=== PATIENT | female | born 1960 | race Caucasian/White ===

== ENCOUNTER → 2016-11-03 | Outpatient (CLI) | payer BC ==
[~2016-11-03] MED LIST: ASCA500 PO; CALC-48 PO; ENOX1INJ9 SC; OXYC-57 PO; POTA99TA PO; VITA400C3 PO; ZNF/4 PO
--- NOTE | 2016-11-04 07:43 | MAMMOGRAPHY REPORT ---
BILATERAL DIGITAL SCREENING MAMMOGRAM TOMOSYNTHESIS WITH CAD: 11/03/2016 CLINICAL HISTORY: Routine screening. TECHNIQUE: Breast tomosynthesis in addition to standard 2D mammography was performed. Current study was also evaluated with a Computer Aided Detection (CAD) system. COMPARISON: Comparison is made to exams dated: 10/29/2015 mammogram, 10/23/2014 mammogram, 10/21/2013 ma mmogram, 10/18/2012 mammogram, 10/18/2011 mammogram, and 10/12/2010 mammogram - [facility] er. BREAST COMPOSITION: The tissue of both breasts is heterogeneously dense, which may obscure small mas ses. FINDINGS: No suspicious masses, calcifications, or areas of architectural distortion are noted in ei ther breast. There has been no significant interval change compared to prior exams. IMPRESSION: ACR BI-RADS CATEGORY 1: NEGATIVE There is no mammographic evidence of malignancy. A 1 year screening mammogram is recommended. The pa tient will receive written notification of the results. Approximately 10% of breast cancers are not detected with mammography. A negative mammographic report should not delay biopsy if a clinically suggestive mass is present. Yahaira Higgins M.D. /:11/03/2016 16:10:59 Shake Splitter: Pia ELKINS(Basilio)(M), [facility] letter sent: Normal 1/2 BI-RADS Code: ACR BI-RADS Category 1: Negative
== END | disposition home or self-care (01) ==
LOC: C.MAMM 09:34
PROVIDERS: ATTEND Obstetrics & Gynecology
DX: Z12.31 Encounter for screening mammogram for malignant neoplasm of breast (principal)

== ENCOUNTER → 2017-02-20 | Outpatient (CLI) | payer OTHER ==
--- NOTE | 2017-02-20 12:49 | DIAGNOSTIC IMAGING REPORT ---
L SHOULDER MIN 2 VIEWS ROUTINE CLINICAL HISTORY: SHOULDER PAIN pain. COMPARISON: None. DISCUSSION: Degenerative change acromioclavicular joint. Mild inferior osteophytic reaction from the acromioclavicular region. Glenohumeral joint is unremarkable. No abnormal soft tissue calcifications. There is no evidence for soft tissue swelling. IMPRESSION: Degenerative change acromioclavicular joint. Otherwise negative study. The above report was generated using voice recognition software. It may contain grammatical, syntax or spelling errors. Electronically signed by: Zaid Sood M.D. 02/20/2017 12:47 PM Dictated Date/Time: 02/20/2017 12:47 PM
== END | disposition home or self-care (01) ==
LOC: C.RAD1850 12:27
PROVIDERS: ATTEND Family Medicine
DX: M19.012 Primary osteoarthritis, left shoulder (principal)

== ENCOUNTER → 2017-04-17 | Outpatient (CLI) | payer OTHER | END | disposition home or self-care (01) | LOC: C.RDSM 09:52 | PROVIDERS: ATTEND Physical Medicine & Rehabilitation Sports Medicine | DX: M24.851 Other specific joint derangements of right hip, not elsewhere classified (principal) ==

== ENCOUNTER 2024-07-01 05:22 | Observation (INO) ==
--- NOTE | 2024-06-03 11:26 | PAT Medication Instructions ---
Medication Instructions Date of Service June 03, 2024 Home Medications Medication Instructions Recorded flurbiprofen 100 mg tablet 50 mg (1/2 x 100 mg) PO BID #60 04/21/23 tabs fluticasone propionate 50 mcg/actuation nasal spray,suspension 1 spray intranasal QAM PRN congestion ascorbic acid (vitamin C) 250 mg tablet (Vitamin C) 250 mg PO QAM cetirizine 10 mg tablet 10 mg PO QAM PRN allergies cholecalciferol (vitamin D3) 25 mcg (1,000 unit) chewable tablet (Vitamin D3) 25 mcg PO QAM cyanocobalamin (vitamin B-12) 500 mcg tablet (Vitamin B-12) 250 mcg PO QAM magnesium carb,citrate,oxide (Magnesium Complex) 400 mg PO UD tizanidine 4 mg tablet 4 mg PO Q8H PRN leg cramps flurbiprofen 100 mg tablet 50 mg (1/2 x 100 mg) PO BID glucosamine DQv-sau-eavjryfqpcb 500 mg-167 mg-400 mg tablet 1 tab PO BID heyusenkhmyr-mkryccqf-bmfuvw tablet (Multivitamin 50 Plus tablet) 1 tab PO Q2D ASK your surgeon for instructions flurbiprofen 100 mg tablet 50 mg (1/2 x 100 mg) PO BID STOP taking 2 weeks before surgery glucosamine CLv-ntv-knnbbzujnaq 500 mg-167 mg-400 mg tablet 1 tab PO BID bbircpkxfmjo-aphiobcq-bmpyzq tablet (Multivitamin 50 Plus tablet) 1 tab PO Q2D DO NOT take the morning of surgery ascorbic acid (vitamin C) 250 mg tablet (Vitamin C) 250 mg PO QAM cetirizine 10 mg tablet 10 mg PO QAM PRN allergies cholecalciferol (vitamin D3) 25 mcg (1,000 unit) chewable tablet (Vitamin D3) 25 mcg PO QAM cyanocobalamin (vitamin B-12) 500 mcg tablet (Vitamin B-12) 250 mcg PO QAM magnesium carb,citrate,oxide (Magnesium Complex) 400 mg PO UD Take morning of surgery With a small sip of water, OTHERWISE NOTHING TO EAT OR DRINK AFTER MIDNIGHT: fluticasone propionate 50 mcg/actuation nasal spray,suspension 1 spray intranasal QAM PRN congestion (if needed) tizanidine 4 mg tablet 4 mg PO Q8H PRN leg cramps (if needed) Take evening before surgery tizanidine 4 mg tablet 4 mg PO Q8H PRN leg cramps (if needed) Other Notes If you have any questions please call us at [phone] or [phone] or [phone] or [phone]
--- NOTE | 2024-06-05 11:47 | Anesthesiology Consultation ---
Date of Service June 05, 2024 Assessment & Plan (1) Encounter for pre-operative examination: Chart Review Chart Review: Acceptable Risk for Surgery (pending review of updated ECHO ) and Patient seen in Pre Admission Testing - Please send optimization note to PCP (Dr. Emiliano Lutz) requesting updated ECHO prior to surgery (pt made aware) (Discussed with Dr. Samuel) - Patient is NOT an ideal OPJ candidate (currently 23 hour obs) Per PAT appt on 06/05/24, no recent illness/disease exposures, illness related symptoms, or recent illness/disease positive tests. Will leave to surgeon's discretion if preop Covid testing needed Left CTR/cubital tunnel 02/10/22= done under [facility] with LMA #4 ([facility]) Teaching & Discussion Pre-Anesthesia Teaching/Discussion Notes: Instructed NPO after midnight before surgery,except medications with 15 cc of water. Medication instructions provided according to the PAT guidelines. History Surgery Operation Date: 07/01/24 10:20 Proposed Procedures p Right Anterior Total Hip Arthroplasty - Abdulaziz Hagan DO Height/Weight Height: 5 ft 7.25 in Weight: 67.8 kg Allergies Allergy/AdvReac Type Severity Reaction Status Date / Time No Known Drug Allergies Allergy Verified 06/03/24 10:18 milk AdvReac Unknown Diarrhea Verified 06/03/24 10:18 artifical sweeteners AdvReac Intermediate Diarrhea Uncoded 06/03/24 10:18 EGGS AdvReac Intermediate diarrhea Uncoded 06/03/24 10:18 narcotics AdvReac Intermediate brain fog Uncoded 06/03/24 10:48 and restlessness & hyperactivity Medications Home Medications Medication Instructions Recorded Confirmed Last Taken fluticasone propionate 50 1 spray intranasal QAM PRN 09/02/20 06/03/24 Unknown mcg/actuation nasal congestion spray,suspension ascorbic acid (vitamin C) 250 mg 250 mg PO QAM 02/02/22 06/03/24 02/09/22 tablet (Vitamin C) cetirizine 10 mg tablet 10 mg PO QAM PRN allergies 02/02/22 06/03/24 Unknown cholecalciferol (vitamin D3) 25 25 mcg PO QAM 02/02/22 06/03/24 02/09/22 mcg (1,000 unit) chewable tablet (Vitamin D3) cyanocobalamin (vitamin B-12) 500 250 mcg PO QAM 02/02/22 06/03/24 02/09/22 mcg tablet (Vitamin B-12) magnesium carb,citrate,oxide 400 mg PO UD 02/02/22 06/03/24 02/09/22 (Magnesium Complex) tizanidine 4 mg tablet 4 mg PO Q8H PRN leg cramps 02/02/22 06/03/24 Unknown flurbiprofen 100 mg tablet 50 mg (1/2 x 100 mg) PO BID #60 04/21/23 06/03/24 Unknown tabs glucosamine QZj-xkp-gpmfapttvgm 1 tab PO BID 06/03/24 06/03/24 Unknown 500 mg-167 mg-400 mg tablet cdntpjurtqyr-xlrwatsv-mpddgs 1 tab PO Q2D 06/03/24 06/03/24 Unknown tablet (Multivitamin 50 Plus tablet) Past Medical History Medical History (Updated 06/06/24 @ 09:09 by Geetha Harper PA-C) Atrial septal aneurysm - Per 1998 ECHO - No evidence of secundum type ASD or PFO - Small intracardiac (sinus venosus- type ASD) or extracardiac (AV fistula) shunt is suggested s/p bubble study - Decided on no additional testing/follow up per patient due to absence of hemodynamically significant shunting Cardiac murmur - mild - 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 Hx of malignant gastrointestinal stromal tumor (GIST) (2005) SX-originally thought it was an ovarian cyst, transferred to general sx care, removed tumor; chemotherapy pill for 1 year Osteoarthritis Seasonal rhinitis Slow to wake up after anesthesia "slow to wake up" - no reintubation or ICU stay- just groggy Exercise / Class Metabolic Activity II 4-5 Yardwork/Stairs/Walk up hill (one flight of stairs - no chest pain or SOB ) Past Family History Family History Other No family history of adverse response to anesthesia Past Surgical History Surgical History H/O decompression of ulnar nerve Left ulnar nerve and left carpal tunnel History of cataract surgery bilateral History of esophagogastroduodenoscopy (EGD) History of hip surgery bone growth removed from lt trochanter rt hip-"shaved ball of hip to avoid total replacement" History of surgical procedure on eye proper using laser 2020 Hx of appendectomy with hysterectomy Hx of bladder repair surgery obturator sling surgery Hx of colonoscopy Hx of exploratory laparotomy (05/2005) removal GIST tumor and part of jejunum & right oopherectomy S/P eye surgery Goniotomy (bilateral -> 03/26/24 Left eye & 04/09/24 Right eye) S/P KYLE (total abdominal hysterectomy) with LSO Past Anesthesia History No Hx of Anesthesia Complications (with exception to slow to wake ) and No Family Hx of Anesthesia Complications (FH unknown ) History of PONV No Hx of PONV and Hx of Motion Sickness Social History Smoking Status: Never smoker Do You Dip or Chew Tobacco: No Hx Alcohol Use: No Hx Substance Use: No substance use type: does not use Review of Systems - Chronic post nasal drip from chronic rhinitis - Rare reflux - relieved with OTC antacids - Hx of snoring- no witnessed apnea - no hx of sleep study Patient denies chest pain, shortness of breath, dyspnea on exertion, cough, wheezing, palpitations. No hx of seizures, stroke, AL. No hx of blood clots or blood transfusions Physical Exam Vital Signs VITALS BP 108/67 P 57 TEMP 97.7 SP02 96% RESP 16 Constitutional no acute distress ENMT Mouth: no TMJ clicking Thyromental Distance: > or= 3.5 Finger Breadths (3.5) Mallampati Class: I Top front permanent bridges Neck neck extension not limited Respiratory normal respiratory effort; no respiratory distress Auscultation: lungs clear to auscultation bilaterally; no wheezes Cardiovascular Rate/Rhythm: regular rate and regular rhythm Heart Sounds: no murmur (no significant murmur noted ) Vessels: no carotid bruit Musculoskeletal Spine: no pain with cervical ROM Extremities: extremities normal to inspection Psychiatric Orientation: alert Lab Results Anesthesia Preop Results Results Anesthesia Widget: WBC 3.82 K/ul (4.8-10.8) L 06/05/24 Hgb 11.1 g/dl (12.0-16.0) L 06/05/24 Hct 31.5 % (37.0-47.0) L 06/05/24 Plt 269 K/uL (130-400) 06/05/24 Na 140 mmol/L (136-145) 06/05/24 K 3.9 mmol/L (3.5-5.1) 06/05/24 Cl 105 mmol/L (98-107) 06/05/24 CO2 29 mmol/L (21-32) 06/05/24 BUN 17 mg/dl (6-23) 06/05/24 Creat 0.64 mg/dl (0.6-1.2) 06/05/24 Glucose Level 97 mg/dl (70-99(Fasting)) 06/05/24 PT 10.6 Seconds (9.0-12.0) 06/05/24 PTT 28 Seconds (21-31) 06/05/24 INR 1.0 (0.9-1.1) 06/05/24 Blood Type O Positive 06/05/24 Antibody Screen NEGATIVE 06/05/24 Testing Laboratory Results Anemia- chronic- relatively stable Electrocardiogram Date: 06/05/24 Findings: + SB @ (48bpm) Incomplete RBBB When compared to EKG from September 02, 2020- no significant change was found per cardio Chest X-Ray Date: 06/05/24 Findings: + NAD FINDINGS: Heart size and pulmonary vasculature are normal. Stable hyperexpanded lungs. No consolidation or pleural effusion.
--- OUTSIDE RECORDS SUMMARY | 2024-07-01 05:31 | External Medical Summary | Continuity of Care Document ---
Author Name Unknown Organization [facility] [address] [facility] [address] [place] [address] [phone] Care Team Providers Care Setter Cold Rolling Machine Name Role Phone Emiliano Lutz Primary Care Physician [phone] Encounter [facility] [id number] Date(s): 06/06/24 - 06/06/24 [facility] [address] [address] [phone] Encounter Diagnosis Vaginal itching(Discharge Diagnosis) - 06/06/24 Discharge Disposition: Home or Self Care Attending Physician: MD Chery, Johnnie Piper Referring Physician: MD Lutz Michael P Encounter Type: Clinic Allergies, Adverse Reactions, Alerts Substance Criticality Severity Reaction Reaction Severity Status sucralose (Splenda) Diarrhea Active eggs Active milk products 1, 2 Diarrhea Cramps Active Allergy Not found in Search 3 digestive issues Active 1unless cooked 2Milk/ice cream 3artificial sweetners (unsure of specific sweetners) Assessment and Plan Extracted from: Title:Office Visit Note Author:DO Swartz Clair e S Date:06/06/24 1. Vaginal itching Undifferentiated new problem with uncertain prognosis Goal: Resolution Data: unique tests ordered: _vaginitis swab Plan: Suspect symptoms secondary to atrophy. Check vaginitis swab. If bothersome could consider treatment for atrophy-> f/u in office prn if would like to discuss treatment in the future. Immunizations Given and Recorded Vaccine Date Status Refusal Reason SARS-CoV-2 (COVID-19) mRNA BNT-162b2 vax 1 10/08/20 Recorded SARS-CoV-2 (COVID-19) mRNA BNT-162b2 vax 08/22/20 Recorded SARS-CoV-2 (COVID-19) mRNA BNT-162b2 vax 2 08/22/20 Recorded zoster vaccine, inactivated 04/26/19 Recorded zoster vaccine, inactivated 01/22/19 Recorded tetanus toxoids-diphtheria, Td (Adult) 02/09/18 Gi concetta tetanus toxoids-diphtheria, Td (Adult) 01/06/98 Re corded tetanus/diphtheria/pertuss, acel (Tdap) 06/20/07 R ecorded typhoid vaccine, live 06/24/04 Recorded 1Result Comment: 2020-10-09: Historical information-source unspecified 2Result Comment: [facility] Medications Flexeril 5 mg oral tablet Start: 07/31/23 11:26:00 AM EDT, 1 tab, PO, qhs, Disp# 20 tab, Refills: 0, prn muscle spasm, Pharmacy: [facility] Start Date: 07/31/23 Status: Ordered Quantity: 20.0 Unit: tab Repeat number: 1 Indications: Cramp and spasm; Flonase 50 mcg/inh nasal spray Start: 07/31/20 10:37:00 AM EDT, 1 spray, each nostril, bid, Disp# 16 g, Refills: 11, in each nostril,, PRN: allergy symptoms, Pharmacy: [facility] Start Date: 07/31/20 Stop Date: 07/26/21 Status: Ordered Quantity: 16.0 Unit: g Repeat number: 12 Indications: Other specified disorders of nose and nasal sinuses; flurbiprofen 100 mg oral tablet Start: 01/03/24 7:40:00 PM EST, See Instructions, Disp# 90 tab, Refills: 1, TAKE 1/2 TABLET TWICE DAILY NEEDED FOR PAIN with food or milk, Pharmacy: [facility] Start Date: 01/03/24 Status: Ordered Quantity: 90.0 Unit: tab Repeat number: 2 Glucosamine Chondroitin MSM Complex Start: 01/22/15 8:31:00 AM EST Start Date: 01/22/15 Status: Ordered Repeat number: 1 magnesium citrate 100 mg oral capsule Start: 06/05/23 9:57:00 AM EDT, 1 cap, PO, Daily Start Date: 06/05/23 Status: Ordered Repeat number: 1 multivitamin Start: 12/20/21 8:17:00 AM EST, 1 tab, PO, Daily Start Date: 12/20/21 Status: Ordered Repeat number: 1 tafluprost 0.0015% ophthalmic solution Start: 09/15/22 3:11:00 PM EDT Start Date: 09/15/22 Status: Ordered Repeat number: 1 Tamiflu 75 mg oral capsule Start: 04/12/24 10:10:00 AM EST, 1 cap, PO, bid, Disp# 10 cap, Pharmacy: [id number] Start Date: 04/12/24 Stop Date: 04/17/24 Status: Ordered Quantity: 10.0 Unit: cap Repeat number: 1 Vitamin B12 500 mcg oral tablet Start: 07/28/21 10:26:00 AM EDT, 1 tab, PO, Daily, Disp# 100 tab, Refills: 10, other Start Date: 07/28/21 Status: Ordered Quantity: 100.0 Unit: tab Repeat number: 11 Vitamin C Start: 12/20/21 8:17:00 AM EST Start Date: 12/20/21 Status: Ordered Repeat number: 1 Zanaflex 4 mg oral tablet Start: 11/03/21 3:43:00 PM EDT, 4 mg =, PO, tid, Disp# 90 tab, Refills: 2, PRN: muscle spasm, Pharmacy: [facility] Start Date: 11/03/21 Stop Date: 02/01/22 Status: Ordered Quantity: 90.0 Unit: tab Repeat number: 3 Mental Status 06/06/24 Barriers to Learning one year None evide nt Mandatory Health Literacy Documentation Yes Health Literacy Communication Barriers N ever Primary Language Latvian Problem List Condition Confirmation Course Effective Dates Status H ealth Status Informant Atrial septal aneurysm 1 Confirmed Active Carpal tunnel syndrome Confirmed Active Cows milk intolerance Confirmed Active Elevated MCV Confirmed 01/28/12 Active Foraminal stenosis of cervical region Confirmed Active Glaucoma Confirmed Active Hiatal hernia Confirmed Active History of malignant gastrointestinal stromal tumor (GIST) Confirmed Active Hx of migraines 2 Confirmed Active Hx of uterine prolapse 3 Confirmed 2004 Active Hyperlipidemia Confirmed 01/28/12 Active Incomplete right bundle branch block Confirmed Active Irritable bowel syndrome with alternating bowel habits Confirmed Active DJD of left AC (acromioclavicular) joint Confirmed Active Osteoarthritis of right hip Confirmed Active Osteochondroma 4 Confirmed Active Patent foramen ovale Confirmed Active Stress bladder incontinence, female 5 Confirmed 2004 Active 1with ASD vs. patent foramen ovale 2classic 3grade 1 4Left greater trochanter 5R/T cystourethracele & uterine prolapse Diagnosis Diagnosis Type Effective Dates Health Status Cl inical Service Informant Vaginal itching Discharge Diagnosis 06/06/24 Non-Specified Procedures Procedure Date Related Diagnosis Body Site Status Colonoscopy 1, 2, 3 02/10/23 Compl eted Mammogram 4 12/05/22 Completed Carpal tunnel syndrome 5 02/10/22 Completed Transposition of ulnar nerve at elbow 6 02/10/22 Completed Mammogram 7 11/29/21 Completed MRI of abdomen 8 12/31/20 Complete d Chest X-ray 9 09/02/20 Completed KUB X-ray 10 09/02/20 Completed Mammogram 11 11/13/18 Completed Diagnostic mammogram 12 11/07/17 C ompleted Left Shoulder X-ray 13 02/20/17 Co mpleted Mammogram 14, 15 11/03/16 Complete d Colonoscopy 16 08/05/15 Completed Upper GI endoscopy 17 08/05/15 Com pleted Pap smear for cervical cance r screening 18, 19 04/20/[address] of head 20 01/11/14 Completed Ultrasound scan of soft tiss ues of leg 21 01/11/14 Completed Arthroscopy of hip 22 01/03/14 Com pleted Mammogram 23 10/18/12 Completed DEXA - Dual energy X-ray earle ton absorptiometry 24 02/23/10 Completed Appendectomy 01/2007 Completed Hysterectomy 01/2007 Completed EGD : hiatus hernia 02/15/06 Compl eted KYLE and left USO 2006 Complete d jejunal )resection of GIST a nd right salpingoophorectomy 25 05/26/05 Completed obturator sling/anterior rep air of bladder 2001 Completed Excision of osteochondroma 1996 Completed Left greater torchanter oste ochondroma excision 1996 Completed Mammogram 28 60 Completed Removal of mole of skin by excision Completed Right salpingo-oophorectomy Completed Suspension of bladder Completed 1A) Ascending colon, biopsy No significant pathology B) Sigmoid colon, biopsy No significant pathology 2- The examined portion of the ileum was normal. - The sigmoid colon and ascending colon are normal. Biopsied. - Redundant colon. - The examination was otherwise normal on direct and retroflexion views 3Repeat colonoscopy in 10 years. 4Impression: There is no mammographic evidence of malignancy. A 1 year screening mammogram is recommended 5subcutaneous left ulnar nerve transposition (left) Left carpal tunnel release (left) 6Left 7Impression: There is no mammographic evidence of malignancy 81. There is no MRI evidence of recurrent or metastatic disease in the abdomen. 2. No hepatic lesion is seen. 3. Question gallbladder sludge. Otherwise normal MRCP. 4. Additional findings as above 9Impression: 1. Right basilar airspace opacities, likely infectious/inflammatory. Suspected trace right pleural effusions. Clinical and radiographic follow up are recommended. 10Impression: Unremarkable KUB 11ACR BI RADS CAT 1 NEGATIVE 12Negative. There is no mammographic evidence of malignancy. A 1 year screening is recommended. The patient will receive written notification of results. 13Degenerative change acromioclavicular joint. Otherwise negative study left shoulder. 14No malignancy. One year screening recommended. 15Impression: There is no mammographic evidence of malignancy.A 1 year screening mammogram is recommended. 16Colon normal. 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 Normal stomach, duodenum. 18follow up in 2 years 19Negative for intraepithelial lesion or malignancy. Atrophy with inflammation. 20No abnormality 21No DVT in right lower extremity 22right hip 23wnl 24-0.6 LS spine 25Dr. Salinas, and [place] 26left greater trochanter 27from a volleyball injury 281 year screening recommended. No mammographic evidence of malignancy 29Ant. Repair Results Most recent to oldest [Reference Range]: 1 Trichomonas DNA-Quest TNP 1 (06/06/24 11:32 AM) 1Result Comment: TEST NOT PERFORMED No suitable specimen received. Please review the test requirements at [email or web address] IQRA SWARTZ DO FASTING:UNKNOWN FASTING: UNKNOWN Specimen Received d/t: 06/07/2024 00:14:00 Lab test performed by: [email or web address] [address] [place] [address] Ernst Black MD Vital Signs Most recent to oldest [Reference Range]: 1 Patient Weight 68 kg (06/06/24 9:20 AM) Temperature [36.5-37.9 DegC] 36.6 DegC (06/06/24 9:20 AM) Heart Rate 65 bpm (06/06/24 9:20 AM) Respiratory Rate 16 br/min (06/06/24 9:20 AM) Blood Pressure 98/62mmHg (06/06/24 9:20 AM) Cuff Pulse Pressure 36 mmHg (06/06/24 9:20 AM) Social History Social History Type Response Smoking Status Never smoked cigaret debi Sex Female Sex Representation Female (finding) FCM Outpt Note * MD Campbell Amy L: MODIFY MD Campbell Amy L: MODIFY Event Display: FCM Outpt Note Authored Date: Chief Complaint C/O vaginal itching. Having R total hip sx 07/01. History of Present Illness 63 year old female with concern for vaginal itchy. - s/p hysterectomy - intermittent vaginal itching -> not bothersome, but ortho wants to rule out "infection" prior to hip replacement 07/01 - saw anesthesiology and ortho yesterday for pre-op testing-> states does not need PCP clearance - denies vaginal d/c - denies urinary symptoms, fever/chills Review of Systems As per above Physical Exam Vitals & Measurements T: 36.6 °C HR: 65 (Monitored) RR: 16 BP: 98/62 SpO2: 96% WT: 68.000 kg (Dosing) WT: 68 kg PHQ2 Data (Data Documented on:06/06/2024 09:15) Emotional health assessment NEGATIVE General: Well-developed, well-nourished patient, in no acute distress, pleasant and normal affect, intact memory. Eyes: No scleral injection or discharge. ENT: Moist mucous membranes. Lungs: No increased work of breathing. Cardiac: Well perfused. No extremity edema. Neurologic: Grossly intact cranial nerves External Genitalia: + atrophy of labia majora/minora, no suspicious lesions noted Urethral meatus: meatus was visualized, no incontinence or prolapse noted on exam Per [facility] protocol, a swimming pool cleaner was offered to be present during this examination. The role of swimming pool cleaner was filled by:_Dr. Campbell Assessment/Plan 1. Vaginal itching Undifferentiated new problem with uncertain prognosis Goal: Resolution Data: unique tests ordered: _vaginitis swab Plan: Suspect symptoms secondary to atrophy. Check vaginitis swab. If bothersome could consider treatment for atrophy-> f/u in office prn if would like to discuss treatment in the future. Attestation Attestation - I discussed and evaluated this patient with Dr. Swartz. I was present for the entirety of the pelvic exam. She has some subtle changes, c/w atrophic vaginitis. She was not looking for tx for this, but rather to rule out yeast, before upcoming ortho surgery. Swab was sent. The assessment and plan was developed with her and carried out at my direction. I have read and agree with her note. Problem List/Past Medical History Ongoing Atrial septal aneurysm Carpal tunnel syndrome Cows milk intolerance DJD of left AC (acromioclavicular) joint Elevated MCV Foraminal stenosis of cervical region Glaucoma Hiatal hernia History of malignant gastrointestinal stromal tumor (GIST) Hx of migraines Hx of uterine prolapse Hyperlipidemia Incomplete right bundle branch block Irritable bowel syndrome with alternating bowel habits Osteoarthritis of right hip Osteochondroma Patent foramen ovale Stress bladder incontinence, female Resolved Acute viral pharyngitis Adhesive capsulitis of shoulder Anemia Arm paresthesia, right Fracture of thumb, left, closed Leukopenia Sore throat Procedure/Surgical History •Colonoscopy| Service Date: 02/10/2023•Mammogram| Service Date: 12/05/2022•Transposition of ulnar nerve at elbow| Service Date: 02/10/2022•Carpal tunnel syndrome| Service Date: 02/10/2022•Mammogram| Service Date: 11/29/2021•MRI of abdomen| Service Date: 12/31/2020•KUB X-ray| Service Date: 09/02/2020•Chest X-ray| Service Date: 09/02/2020•Mammogram| Service Date: 11/13/2018•Diagnostic mammogram| Service Date: 11/07/2017•Left Shoulder X-ray| Service Date: 02/20/2017•Mammogram| Service Date: 11/03/2016•Colonoscopy| Service Date: 08/05/2015•Upper GI endoscopy| Service Date: 08/05/2015•Pap smear for cervical cancer screening| Service Date: 04/20/2015•CT of head| Service Date: 01/11/2014•Ultrasound scan of soft tissues of leg| Service Date: 01/11/2014•Arthroscopy of hip| Service Date: 01/03/2014•Mammogram| Service Date: 10/18/2012•DEXA - Dual energy X-ray photon absorptiometry| Service Date: 02/23/2010•Hysterectomy| Service Date: 01/2007•Appendectomy| Service Date: 01/2007•EGD : hiatus hernia| Service Date: 02/15/2006•KYLE and left USO| Service Date: 2006•jejunal )resection of GIST and right salpingoophorectomy| Service Date: 05/26/2005•obturator sling/anterior repair of bladder| Service Date: 2001•Left greater torchanter osteochondroma excision| Service Date: 1996•Excision of osteochondroma| Service Date: 1996•Mammogram| Service Date: 1960•Right salpingo- oophorectomy•Suspension of bladder•Removal of mole of skin by excision Medications ascorbic acid(Vitamin C) chondroitin/glucosamine/methylsulfonylmethane(Glucosamine Chondroitin MSM Complex) cyanocobalamin(Vitamin B12 500 mcg oral tablet), 500 mcg= 1 tab, PO, Daily, 10 refills cyclobenzaprine(Flexeril 5 mg oral tablet), 5 mg= 1 tab, PO, qhs flurbiprofen(flurbiprofen 100 mg oral tablet), See Instructions, 1 refills fluticasone nasal(Flonase 50 mcg/inh nasal spray), 1 spray, each nostril, bid, PRN, 11 refills magnesium citrate(magnesium citrate 100 mg oral capsule), 100 mg= 1 cap, PO, Daily multivitamin, 1 tab, PO, Daily oseltamivir(Tamiflu 75 mg oral capsule), 75 mg= 1 cap, PO, bid tafluprost ophthalmic(tafluprost 0.0015% ophthalmic solution) tiZANidine(Zanaflex 4 mg oral tablet), 4 mg, PO, tid, PRN, 2 refills Allergies Allergy Not found in Search digestive issues eggs milk products Diarrhea, Cramps sucralose (Splenda) Diarrhea Social History Smoking Status Never smoked cigarettes Alcohol - Denies Alcohol Use 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 High Blood Pressure: Father. Lung cancer..: Mother. Osteoporosis: Mother. Smoker.: Mother. Stroke: MGM and Unknown. Thyroid disease: Mother. Health Status Family Member(s) Family Member(s) Relationship: Mother, Age: 79 Years, Cause: starved herself Relationship: Father, Age: 90 Years, Cause: arrythmia Immunizations Vaccine Date Status SARS-CoV-2 (COVID-19) mRNA BNT-162b2 vax 10/08/2020 Recorded Comments : 2020-10-09: Historical information-source unspecified SARS-CoV-2 (COVID-19) mRNA BNT-162b2 vax 08/22/2020 Recorded SARS-CoV-2 (COVID-19) mRNA BNT-162b2 vax 08/22/2020 Recorded Comments : [facility] zoster vaccine, inactivated 04/26/2019 Recorded zoster vaccine, inactivated 01/22/2019 Recorded tetanus toxoids-diphtheria, Td (Adult) 02/09/2018 Given tetanus/diphtheria/pertuss, acel (Tdap) 06/20/2007 Recorded typhoid vaccine, live 06/24/2004 Recorded tetanus toxoids-diphtheria, Td (Adult) 01/06/1998 Recorded Recommendations Health Maintenance Pending (in the next year) OverDue Adult Influenza Vaccine due 08/14/23 and every 1 year Due Adult Social Determinants of Health Screening due 06/06/24 Unknown Frequency Pneumococcal Vaccine Older Adults due 06/06/24 One-time only Seasonal COVID 19 Vaccine due 06/06/24 Unknown Frequency Satisfied (in the past 1 year) Satisfied Body Mass Index on 03/11/24. Satisfied by JOURDAN Daily Kyla Breast Cancer Screening on 12/11/23. Satisfied by CYNTHIA Berumen Lynnae Electronic Signature on File Electronically Reviewed/Signed by: Iqra Swartz DO Author Signature Dt/Tm:06/06/2024 10:12 AM Resident Department of Family Medicine Electronically Reviewed/Signed by: MD Trice Bhaktaigner Signature Dt/Tm: 06/06/2024 08:07 PM Internal Audit Consultant Family and Community Medicine [facility] [address] [facility] [facility] [address], [address] [place] [address] CSN Patient Care team information Care Team Personnel Name: MD Nelda, Emiliano Piper Position: Physician - Family Med Member Role: Primary Care Provider Address: [address] [place] [address] [address] [place] [address] Telecom: [phone] Care Team Related Persons Name: RODRIGUE RAE Name: RODRIGUE RAE Insurance Providers Guarantor name: GABBI RAE Health Plan Information #: 1 Payer: [facility] Member Number: [id number] Policy Number: NA Group Number: [id number] Payer Identifier: [id number] Health Plan Information #: 2 Payer: [employer] PCP ONLY Member Number: [id number] Policy Number: NA Group Number: [id number] Payer Identifier: NA
--- OUTSIDE RECORDS SUMMARY | 2024-07-01 05:31 | External Medical Summary | Continuity of Care Document ---
Author Name Unknown Organization [facility] [address] [place], [place] [id number] Care Team Providers Care Metal Bench Patternmaker Name Role Phone Emiliano Lutz Primary Care Physician [phone] [id number] Date(s): 06/21/24 - 06/21/24 [facility] [address], [address] [place] [address] [phone] Discharge Disposition: Home or Self Care Attending Physician: MD Campbell Amy L Referring Physician: MD Campbell Amy L Encounter Type: Clinic Allergies, Adverse Reactions, Alerts Substance Criticality Severity Reaction Reaction Severity Status sucralose (Splenda) Diarrhea Active eggs Active milk products 1, 2 Diarrhea Cramps Active Allergy Not found in Search 3 digestive issues Active 1unless cooked 2Milk/ice cream 3artificial sweetners (unsure of specific sweetners) Immunizations Given and Recorded Vaccine Date Status Refusal Reason SARS-CoV-2 (COVID-19) mRNA BNT-162b2 vax 1 10/08/20 Recorded SARS-CoV-2 (COVID-19) mRNA BNT-162b2 vax 08/22/20 Recorded SARS-CoV-2 (COVID-19) mRNA BNT-162b2 vax 2 08/22/20 Recorded zoster vaccine, inactivated 04/26/19 Recorded zoster vaccine, inactivated 01/22/19 Recorded tetanus toxoids-diphtheria, Td (Adult) 02/09/18 Gi concetta tetanus toxoids-diphtheria, Td (Adult) 01/06/98 Re corded tetanus/diphtheria/pertuss, acel (Tdap) 5/7/08 R ecorded typhoid vaccine, live 06/24/04 Recorded 1Result Comment: 2020-10-09: Historical information-source unspecified 2Result Comment: [facility] Medications Flexeril 5 mg oral tablet Start: 07/31/23 11:26:00 AM EDT, 1 tab, PO, qhs, Disp# 20 tab, Refills: 0, prn muscle spasm, Pharmacy: [facility] Start Date: 07/31/23 Status: Ordered Quantity: 20.0 Unit: tab Repeat number: 1 Indications: Cramp and spasm; Flonase 50 mcg/inh nasal spray Start: 07/31/20 10:37:00 AM EDT, 1 spray, each nostril, bid, Disp# 16 g, Refills: 11, in each nostril,, PRN: allergy symptoms, Pharmacy: [facility] Start Date: 07/31/20 Stop Date: 07/26/21 Status: Ordered Quantity: 16.0 Unit: g Repeat number: 12 Indications: Other specified disorders of nose and nasal sinuses; flurbiprofen 100 mg oral tablet Start: 01/03/24 7:40:00 PM EST, See Instructions, Disp# 90 tab, Refills: 1, TAKE 1/2 TABLET TWICE DAILY NEEDED FOR PAIN with food or milk, Pharmacy: [facility] Start Date: 01/03/24 Status: [...] Date: 09/15/22 Status: Ordered Repeat number: 1 Vitamin B12 500 mcg [...] tab, Refills: 2, PRN: muscle spasm, Pharmacy: [facility] Start Date: 11/03/21 Stop Date: 02/01/22 Status: Ordered Quantity: 90.0 Unit: tab Repeat number: 3 Problem List Condition Confirmation Course Effective Dates [...] Active Hx of uterine prolapse 3 Confirmed 2003 Active Hyperlipidemia Confirmed 01/28/12 Active Incomplete right bundle branch block Confirmed Active Irritable bowel syndrome with alternating bowel habits Confirmed Active DJD of left AC (acromioclavicular) joint Confirmed Active Osteoarthritis of right hip Confirmed Active Osteochondroma 4 Confirmed Active Patent foramen ovale Confirmed Active Stress bladder incontinence, female 5 Confirmed 2003 Active 1with ASD vs. patent foramen ovale 2classic 3grade 1 4Left greater trochanter 5R/T cystourethracele & uterine prolapse Procedures Procedure Date Related Diagnosis Body Site [...] 14, 15 11/03/16 Complete d Colonoscopy 16 6/22/16 Completed Upper GI endoscopy 17 08/05/15 Com [...] )resection of GIST a nd right salpingoophorectomy 05/26/05 Completed obturator sling/anterior rep air of [...] No mammographic evidence of malignancy 29Ant. Repair Social History Social History Type Response Smoking Status Never smoked cigaret debi Sex Female Sex Representation Female (finding) Patient Care team information Care Team Personnel Name: MD Nelda, Emiliano Piper Position: Physician - Family Med Member Role: Primary Care Provider Address: [address] [place] [address] Telecom: [phone] Care Team Related Persons Name: RODRIGUE RAE Name: RODRIGUE RAE Insurance Providers Guarantor name: GABBI RAE Health Plan Information #: 1 Payer: [employer] Member Number: [id number] Policy Number: NA Group Number: [id number] Payer Identifier: [id number] Health Plan Information #: 2 Payer: [employer] Member Number: [id number] Policy Number: NA Group Number: NA Payer Identifier: [id number] Health Plan Information #: 3 Payer: [employer] PCP ONLY Member Number: NA Policy Number: NA Group Number: NA Payer Identifier: NA
--- OUTSIDE RECORDS SUMMARY | 2024-07-01 05:31 | External Medical Summary | Summary of Care ---
Author Name Unknown Organization [facility] Address [address] [place] [address] Phone [phone] Care Team Providers Care Automotive Machinist Apprentice Name Role Phone Jorge Centeno MD Primary Care Provider [phone] Encounter Details Date Type Department Care Team (Late st Contact Info) Description 03/22/2024 Telephone Pre Surgery Center, [facility] [address] [place] [address] Jarrett Ramirez MD [facility] Demond Sosa [address] [address] Allergies No known active allergiesdocumented as of this encounter (statuses as of 06/22/2024) Medications VITAMIN D HIGH POTENCY 1000 UNIT PO CAPS 2CAPSULE DAILY 0 Active VITAMIN C CR 500 MG PO CPCR 1 CAPSULE DAILY 2 Active Flurbiprofen 100 MG Oral Tablet Take 0.5 Tablets by mouth in the morning and 0.5 Tablets before bedtime. 3 Active Vitamin B-12 250 MCG Oral Tablet (Cyanocobalamin ) Take by mouth daily. Active Fruit & Vegetable Daily Oral Capsule Take 1 Capful by mouth once. Active Eye Lubricant Ophthalmic Ointment Instill into eye. Active Tafluprost (PF) 0.0015 % Ophthalmic Solution Instill 1 Drop into eye once. Active Cyclobenzaprine HCl 5 MG Oral Tablet (Flexeril) Take 1 Tablet by mouth. Active tiZANidine HCl 4 MG Oral Tablet (Zanaflex) Take 1 Tablet by mouth. Active Fiber Oral Powder Take by mouth. As needed Active Calcium Carbonate Antacid 500 MG Oral Tablet Chewable (Antacid) Take by mouth. As needed Active Cetirizine HCl 10 MG Oral Tablet (ZyrTEC) Take 1 Tablet by mouth. As needed Active Fluticasone Propionate 50 MCG/ACT Nasal Suspension (Flonase) Administer 1 [place] into nostril. 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 Other iron deficiency anemia Overview (11/14/2016): ICD-10 update of inactive term documented as of this encounter (statuses as of 06/22/2024) Social History Tobacco Use Types Packs/Day Years Used Date Smoking Tobacco: Never Alcohol Use Standard Drinks/Week Comments No 0 (1 standard drink = 0.6 oz pur e alcohol) Comments No Sex and Gender Information Value Date Recorded Sex Assigned at Female 01/23/2023 8:33 PM EST Legal Sex Female 6:13 AM EST Gender Identity Female 01/23/2023 8:33 PM EST Sexual Orientation Straight 01/23/2023 8: 33 PM EST documented as of this encounter Miscellaneous Notes * Telephone Encounter - Tami Baxter RN - 03/22/2024 8:40 AM EST Attempted to call for pre anesthesia evaluation. No answer. Voice mail left requesting return call documented in this encounter Plan of Treatment Health Maintenance Due Date Last Done Comments Depression Screening 1972 HIV Screening 12/13/1975 Hepatitis C Screening 1978 DTap/Tdap Vaccines (1 - Tdap) 12/13/1979 Pap Smear 1981 Cervical Cancer Screening 1990 HPV/Co-Test 1990 Mammogram 2000 Cologuard 2005 Fecal Occult Blood Test 2005 Sigmoidoscopy 2005 Pneumococcal Vaccine: 50+ Years (1 of 1 - PCV) 2010 Lipid Panel 07/22/2015 07/21/2010, 01/13, 07/28/2009, Additional history exists Colonoscopy 02/16/2016 02/15/2006, 01/19/2006 Colorectal Cancer Screening 02/16/2016 COVID-19 Vaccine ( season) 2023 10/08/2020, 08/22/2020 Influenza Vaccine (FLU shot) (Season Ended) 2024 Zoster Vaccines Completed 04/26/2019, 01/22/2019 HPV (Gardasil) Vaccine Aged Out No lo nger eligible based on patient's age to complete this topic Hepatitis B Vaccine Aged Out No longe r eligible based on patient's age to complete this topic MENINGOCOCCAL (MENACTRA/MENVEO) Aged Out No longer eligible based on patient's age to complete this topic Meningitis B Vaccine (Bexsero/Trumemba) Aged Out No longer eligible based on patient's age to complete this topic documented as of this encounter Medical Devices Implanted Type Area Signal Operator Technical Device Identifier Shelf Expiration Date Model / Serial / Lot Lens Li61ao 13.00mm 21.00 - [id number] - [id number] Implanted:Qty: 1 on 03/26/2024 by Jarrett Ramirez MD at OR [facility] Left: Eye BAUSCH 08/12/2028 [id number] / [id number] / [id number] Lens Li61ao 13.00mm 21.50 - [id number] - [id number] Implanted:Qty: 1 on 04/09/2024 by Jarrett Ramirez MD at OR [facility] Right: Eye BAUSCH 08/12/2028 [id number] / [id number] / [id number] documented as of this encounter Advance Directives * Full Code (Latest Code Status on File) Date Activated Date Inactivated Comments 04/09/2024 7:43 AM 04/09/2024 2:02 PM This order r eflects the patients wishes and were consensually agreed upon. Question Answer Comments Discussion of Advance Directives occurred with: Patient Does the patient have a Living Will? No Does the patient have Health Care Power of Attor caleb? No * Full Code Date Activated Date Inactivated Comments 03/26/2024 7:53 AM 03/26/2024 2:15 PM This order r eflects the patients wishes and were consensually agreed upon. Question Answer Comments Discussion of Advance Directives occurred with: Patient Does the patient have a Living Will? No Does the patient have Health Care Power of Attor caleb? No Care Teams Automotive Machinist Apprentice Relationship Specialty Start Date End Date Jorge Centeno MD [address] [place] [address] PCP - General Radiology 03/25/24 documented as of this encounter
--- OUTSIDE RECORDS SUMMARY | 2024-07-01 05:31 | External Medical Summary | Continuity of Care Document ---
Author Name Unknown Organization [facility] [address] [place] [address] [place] [address] [phone] Care Team Providers Care Yarn Mercerizer Operator Helper Name Role Phone Emiliano Lutz Primary Care Physician [phone] Encounter [facility] [id number] Date(s): 06/17/24 - 06/17/24 [facility] [address] [address] [phone] Encounter Diagnosis Pre-op examination(Discharge Diagnosis) - 06/17/24 Discharge Disposition: Home or Self Care Attending Physician: MD [facility] Encounter Type: Clinic Allergies, Adverse Reactions, Alerts [...] 02/09/18 Gi concetta tetanus toxoids-diphtheria, Td (Adult) 11/24/98 Re corded tetanus/diphtheria/pertuss, acel (Tdap) 06/20/07 R ecorded typhoid vaccine, live 06/24/04 Recorded 1Result Comment: 2020-10-09: Historical information-source unspecified 2Result Comment: [facility] Medications Flexeril 5 mg oral tablet Start: 07/31/23 11:26:00 AM EDT, 1 tab, PO, qhs, Disp# 20 tab, Refills: 0, prn muscle spasm, Pharmacy: [facility] Start Date: 07/31/23 Status: Ordered Quantity: 20.0 Unit: tab Repeat number: 1 Indications: Cramp and spasm; Flonase 50 mcg/inh nasal spray Start: 07/31/20 10:37:00 AM EDT, 1 spray, each nostril, bid, Disp# 16 g, Refills: 11, in each nostril,, PRN: allergy symptoms, Pharmacy: [facility] Start Date: 07/31/20 Stop Date: 07/26/21 Status: Ordered Quantity: 16.0 Unit: g Repeat number: 12 Indications: Other specified disorders of nose and nasal sinuses; flurbiprofen 100 mg oral tablet Start: 01/03/24 7:40:00 PM EST, See Instructions, Disp# 90 tab, Refills: 1, TAKE 1/2 TABLET TWICE DAILY NEEDED FOR PAIN with food or milk, Pharmacy: [facility] Start Date: 01/03/24 Status: Ordered Quantity: [...] tab, Refills: 2, PRN: muscle spasm, Pharmacy: [facility] Start Date: 11/03/21 Stop Date: 02/01/22 Status: Ordered Quantity: 90.0 Unit: tab Repeat number: 3 Mental Status 06/17/24 Barriers to Learning one year None evide nt Mandatory Health Literacy Documentation Yes Health Literacy Communication Barriers N ever Primary Language Cameroonian Problem List Condition Confirmation Course Effective Dates [...] Diagnosis Diagnosis Type Effective Dates Health Status Clinical Service Informant Pre-op examination Discharge Diagnosis 06/17/24 Non-Specified Procedures Procedure Date Related Diagnosis Body [...] No mammographic evidence of malignancy 29Ant. Repair Vital Signs Most recent to oldest [Reference Range]: 1 Patient Weight 67.5 kg (06/17/24 3:03 PM) Temperature [36.5-37.9 DegC] 36.7 DegC (06/17/24 3:03 PM) Heart Rate 60 bpm (06/17/24 3:03 PM) Respiratory Rate 18 br/min (06/17/24 3:03 PM) Blood Pressure 106/74mmHg (06/17/24 3:03 PM) Cuff Pulse Pressure 32 mmHg (06/17/24 3:03 PM) Social History Social History Type Response Smoking Status Never smoked cigaret debi Sex Female Sex Representation Female (finding) Patient Care team information Care Team Personnel Name: MD Nelda, Emiliano Piper Position: Physician - Family Med Member Role: Primary Care Provider Address: [address] [place] [address] Telecom: [phone] Care Team Related Persons Name: RODRIGUE RAE Name: RODRIGUE RAE Insurance Providers Guarantor name: GABBI RAE Health Plan Information #: 2 Payer: [employer] PCP ONLY Member Number: [id number] Policy Number: NA Group Number: [id number] Payer Identifier: NA Health Plan Information #: 1 Payer: [facility] Member Number: [id number] Policy Number: NA Group Number: [id number] Payer Identifier: [id number]
[2024-07-01] MEDS: LR 500ML BOLUS, THEN 15ML/HR IV SCH (06:16)
[2024-07-01] MEDS: LR 60ML/HR IV SCH (06:16)
[2024-07-01] MEDS: FAMOTIDINE 20 MG TAB PO SCH (06:17)
[2024-07-01] MEDS: ACETAMINOPHEN 500 MG TAB PO SCH ×2 (06:17→13:48)
[2024-07-01] MEDS: GABAPENTIN 600 MG DOSE PO SCH (06:19)
[2024-07-01] MEDS: dexAMETHasone**PF** 10 MG/ML VIAL IV SCH (06:20)
--- NOTE | 2024-07-01 06:27 | History & Physical Bridge Note ---
Date of Service July 01, 2024 History & Physical Bridge Note I have examined the patient, reviewed the History & Physical and in the interval since the performance of the History & Physical I have noted the following changes of clinical significance: no changes noted
[2024-07-01] MEDS ORDERED: BUPIVACAINE 0.5 % 5 MG/1 ML PF 10ML VIAL ONE (06:32)
[2024-07-01] MEDS ORDERED: PROPOFOL IV EMULSION 10 MG/ML 100 ML VIAL IV ONE (06:42)
[2024-07-01] MEDS ORDERED: MIDAZOLAM HCL 1 MG/ML 2ML VIAL ONE (06:47)
[2024-07-01] MEDS: TRANEXAMIC ACID 1,000 MG **IV Pre-op IV SCH (06:49)
[2024-07-01] MEDS ORDERED: ePHEDrine sulfate 50 MG/ML AMP IV PRN (06:55)
[2024-07-01] MEDS ORDERED: ONDANSETRON INJ 2 MG/ML 2 ML VIAL IV PRN ×2 (06:55→10:30)
[2024-07-01] MEDS ORDERED: ATROPINE SULFATE 0.1 MG/ML 10ML SYR IV PRN (06:55)
[2024-07-01] MEDS ORDERED: PROMETHAZINE HCL 6.25 MG in SODIUM CHLORIDE 0.9% 50 ML IV PRN (06:55)
[2024-07-01] MEDS: ceFAZolin 2000MG 2,000 MG/15 ML SYR IV SCH (07:02)
[2024-07-01] MEDS: ROPIV 0.5% 246mg, Ketorolac 30mg, EPINEPHrine 0.5mg in NSS INFIL SCH (07:22)
[2024-07-01] MEDS: ORTHO JOINT ANESTHETIC ONE (07:23)
[2024-07-01] MEDS ORDERED: KETAMINE HCL 10MG/ML SYR ONE (07:28)
[2024-07-01] MEDS ORDERED: ONDANSETRON INJ 2 MG/ML 2 ML VIAL ONE (07:28)
[2024-07-01] MEDS: TRANEXAMIC ACID 1,000 MG **IV Intra-op IV SCH (08:12)
--- NOTE | 2024-07-01 08:21 | Operative Report ---
PG Post Operative Report Pre & Post Diagnosis Operation Date: 07/01/24 07:00 Pre-Op Diagnosis: Right Hip Arthritis Post-Op Diagnosis: Right Hip Arthritis I identified the patient and participated in the time-out.: Yes Procedure Operation Date: 07/01/24 07:00 Actual Procedures p Right Anterior Total Hip Arthroplasty(Right) - Abdulaziz Hagan DO Surgeon Abdulaziz Hagan DO Fitting Room Maintenance Mechanic Ant Awad PA-C Estimated Blood Loss 150 Findings Consistent with Post-Op Diagnosis Specimens Right femoral head Description of Procedure Implants used I used a ZimmerBiomet total hip arthroplasty system with a size 4 standard offset Z1 stem, a 54 mm G7 cup with a 25mm screw, an E1 polyethylene liner, a 40 mm ceramic head with a -3.5 neck. Tammi arrived at the hospital for the above procedure. She was seen in the preoperative holding area and the operative extremity was identified and signed. She was given a spinal anesthetic, a preoperative antibiotic, and TXA. She was then taken back to the operating room and laid on the table in the supine position. She was given basic sedation. The operative leg was secured to a Puristst leg positioner. The hip was then prepped and draped in sterile fashion. A timeout was done and the patient and the operative extremity was properly identified. An anterior approach was used. Dissection was taken down through the fascia and the tensor muscle belly was retracted laterally and the rectus was retracted medially. The circumflex vessels were identified and ligated. The capsule was then incised and tagged for later repair. The femoral neck was then cut and the femoral head was removed. The acetabulum was exposed. Time was spent doing a complete circumferential labral release. Sequential reaming of the acetabulum up to a size 53 reamer was done. Final reamings were done under fluoroscopy to ensure appropriate version. A Biomet 54 mm G7 cup was then impacted into place. A single 25 mm screw was placed. The E1 polyethylene liner was then snapped into place. Surrounding soft tissues were then injected with 100 cc of an orthopedic pain control cocktail. The proximal femur was then exposed. Sequential broaching up to a size 4 standard offset broach was done. Off that broach a size 40 head with a -3.5 neck was trialed. The hip was reduced and fluoroscopic images showed anatomic alignment of the implants in acceptable length. The broach was removed. The final size 4 standard offset Z1 stem was then impacted into place. A ceramic 40 mm head with a -3.5 neck was then impacted onto the stem and the hip was reduced. Final fluoroscopic images showed anatomic alignment of the hip. The capsule was then closed with #1 Vicryl suture. A dilute betadyne lavage was then done for 3 minutes. The joint was then irrigated with normal saline solution. The fascia was closed with #1 PDS suture. Skin was closed with 2-0 Vicryl, sheree, and a Silverlon dressing. She was then transferred to a hospital bed and taken to the post anesthesia care unit in stable condition. She tolerated the procedure well. Ant Awad PA-C, was present for the entire procedure. He was critical for patient positioning, prepping, draping, retraction exposure, wound closure and application of sterile dressing. I attest to the content of the Intraoperative Record and any orders documented therein. Any exceptions are noted below.
--- NOTE | 2024-07-01 08:30 | Fluoroscopy Report ---
FL hip RT 1V CLINICAL HISTORY: RIGHT ANTERIOR HIP COMPARISON STUDY: 06/20/2022 FLUOROSCOPY TIME: 17 seconds FLUOROSCOPY IMAGES: 1 EXPOSURE DOSE: 1.4 mGy FINDINGS: Fluoroscopy was provided for right hip prosthesis. IMPRESSION: Intraoperative fluoroscopy. ACT 112: Negative or not required by law. Electronically signed by: Jorge Cadena M.D. 07/01/2024 8:29 AM
--- NOTE | 2024-07-01 09:25 | XRay Report ---
XR hip 1V RT w pelvis CLINICAL HISTORY: IN PACU - Post Surgical COMPARISON: 06/20/2022 FINDINGS: Right hip prosthesis shows no hardware complication. There is expected soft tissue gas. Ba ndage artifact is present bilaterally. IMPRESSION: Unremarkable postoperative exam. ACT 112: Negative or not required by law. Electronically signed by: Jorge Cadena M.D. 07/01/2024 9:23 AM
[2024-07-01] MEDS ORDERED: NALOXONE HCL 0.4 MG/1 ML VIAL/CARP IV PRN (10:30)
[2024-07-01] MEDS ORDERED: MAGNESIUM HYDROXIDE SUSP 30 ML UDC PO PRN (10:30)
[2024-07-01] MEDS ORDERED: HYDROmorphone INJ 0.5 MG/0.5 ML SYR IV PRN (10:30)
[2024-07-01] MEDS ORDERED: oxyCODONE HCL IR 5 MG TAB (IMMEDIATE RELEASE) PO PRN (10:30)
[2024-07-01] MEDS ORDERED: bisacodyL 10 MG SUPP PR PRN (10:30)
[2024-07-01] MEDS ORDERED: METOCLOPRAMIDE HCL INJ 5 MG/ML 2 ML VIAL IV PRN (10:30)
[2024-07-01] MEDS: KETOROLAC TROMETHAMINE 15 MG/ML VIAL IV SCH (10:55)
[2024-07-01] MEDS: DOCUSATE SODIUM 100 MG CAP PO SCH (10:55)
[2024-07-01] MEDS: SODIUM CHLORIDE 0.9% 1,000 ML IV SCH (11:00)
[2024-07-01] MEDS: MULTIVITAMIN TAB PO SCH (11:21)
[2024-07-01] MEDS: ceFAZolin 1000MG 1,000 MG/7.5 ML SYR IV SCH (13:49)
--- NOTE | 2024-07-01 16:00 | Anesthesiology Progress Note ---
Date of Service July 01, 2024 Anesthesia Post Procedure Vital Signs Vital Signs: Temp Pulse Resp BP Pulse Ox O2 Del Method O2 Flow Rate 07/01/24 13:45 36.9 C 65 16 105/67 96 Room Air 07/01/24 12:29 36.3 C L 60 18 112/69 96 Room Air 07/01/24 11:30 36.4 C L 54 L 16 130/76 98 Room Air 07/01/24 11:00 36.1 C L 57 L 16 124/70 97 Room Air 07/01/24 10:30 36.4 C L 55 L 16 121/72 97 Room Air 07/01/24 10:15 51 L 16 121/72 95 Room Air 07/01/24 10:00 48 L 18 108/68 96 Room Air 07/01/24 09:45 49 L 16 130/69 99 Room Air 07/01/24 09:30 49 L 18 119/74 98 Room Air 07/01/24 09:15 36.2 C L 48 L 13 130/73 100 Room Air 07/01/24 09:05 53 L 20 135/69 100 Room Air 07/01/24 08:55 51 L 12 133/70 99 Room Air 07/01/24 08:45 45 L 22 117/59 L 99 Room Air 07/01/24 08:35 51 L 22 109/45 L 100 Oxymask 7 07/01/24 08:29 36.2 C L 51 L 14 99/65 L 97 Oxymask 11 07/01/24 05:56 36.7 C 56 L 20 115/70 95 Room Air Pain Intensity Lower Back: Pain Intensity: 8 Transfer of Care Handoff Completed per policy Notes Mental Status: alert / awake / arousable Patient Amnestic to Procedure: Yes Nausea / Vomiting: adequately controlled Pain: adequately controlled Airway Patency, RR, SpO2: stable & adequate BP & HR: stable & adequate Hydration State: stable & adequate Neuraxial Anesthesia: was administered and sensory block is resolving Anesthetic Complications: no major complications apparent and Pt Satisfied with anesthetic care Notes: Patient c/o mild low back pain felt to be due to positioning in OR. Position changes seemed to help.
[2024-07-01] MEDS: ASPIRIN 81 MG ECTAB PO SCH (20:30)
[2024-07-01] MEDS: SENNA 8.6 MG TAB PO SCH (20:30)
[2024-07-02 07:51] VITALS: BP 101/58; PULSE 62; RESP 16; TEMP 98.6; O2SAT 98
[2024-07-02] MEDS: dexAMETHasone 4 MG TAB PO SCH (08:42)
--- NOTE | 2024-07-02 13:06 | Orthopedic Progress Note ---
Date of Service July 02, 2024 Assessment & Plan (1) Status post right hip replacement: Assessment: Status post right anterior total hip arthroplasty. Plan: Overall, she is doing quite well today with good pain control of the right hip. She will work with physical therapy later this morning work on ambulation range of motion exercises. She was started on aspirin for DVT prophylaxis. She can be discharged home later this morning pending formal physical therapy evaluation recommendation. Her Silverlon dressing remain in place for 7 days. She can discontinue it on her own or with assistance of home health after 7 days. Discharge medication instructions were discussed with the patient today with verbalized understanding. She will follow-up with orthopedics in 2 to 3 weeks for continued postoperative management or sooner if needed. Subjective . Tammi was seen and evaluated this morning resting comfortably in no apparent distress. She notes that her pain is well-controlled to the right hip today. She has been up and out of bed with no significant issues. She has yet to work physical therapy today. She denies any concerns with her surgical incision site. She denies any active bleeding, discharge, or signs infection. She denies any other concerns today. Review of Systems All systems reviewed & are unremarkable except as noted in HPI & below. Physical Exam . On physical examination of the right hip, the dressing is clean, dry, intact with no signs of active bleeding, discharge, or signs of infection. Her leg is on full extension. She has limited range of motion strength secondary to postoperative stiffness soreness. Calf soft nontender to palpation. Negative Homans' sign. Intact plantarflexion dorsiflexion to right ankle. +2 DP and PT pulse. Less than 2-second capillary refill. Normal sensation. Neurovascular intact. Results & Data Results & Data Laboratory Results . Diagnostic Findings . Hip X-Ray 07/01/24 07:00 FL hip RT 1V CLINICAL HISTORY: RIGHT ANTERIOR HIP COMPARISON STUDY: 06/20/2022 FLUOROSCOPY TIME: 17 seconds FLUOROSCOPY IMAGES: 1 EXPOSURE DOSE: 1.4 mGy FINDINGS: Fluoroscopy was provided for right hip prosthesis. IMPRESSION: Intraoperative fluoroscopy. ACT 112: Negative or not required by law. Electronically signed by: Jorge Cadena M.D. 07/01/2024 8:29 AM Hip/Pelvis X-Ray 07/01/24 08:38 XR hip 1V RT w pelvis CLINICAL HISTORY: IN PACU - Post Surgical COMPARISON: 06/20/2022 FINDINGS: Right hip prosthesis shows no hardware complication. There is expe cted soft tissue gas. Bandage artifact is present bilaterally. IMPRESSION: Unremarkable postoperative exam. ACT 112: Negative or not required by law. Electronically signed by: Jorge Cadena M.D. 07/01/2024 9:23 AM PG Care Time/CCT Total # of Minutes Spent Total Time Spent with Patient: Total time spent is greater than 50% in coordination of care (as documented) at patient's floor/unit and/or counseling patient: Coding Level of Care Code 09384 Post Operative Follow-Up Diagnoses Status post right hip replacement Z96.641
--- NOTE | 2024-07-02 13:07 | Discharge Summary ---
Date of Service July 02, 2024 Principal Diagnosis Same as "Discharge Diagnosis" noted below under Discharge Instructions. Discharge Exam . On physical examination of the right hip, the dressing is clean, dry, intact with no signs of active bleeding, discharge, or signs of infection. Her leg is on full extension. She has limited range of motion strength secondary to postoperative stiffness soreness. Calf soft nontender to palpation. Negative Homans' sign. Intact plantarflexion dorsiflexion to right ankle. +2 DP and PT pulse. Less than 2-second capillary refill. Normal sensation. Neurovascular intact. Discharge Data Procedures Performed Operation Date: 07/01/24 07:00 Actual Procedures p Right Anterior Total Hip Arthroplasty(Right) - Abdulaziz Hagan DO Ordered Studies 07/01/24 07:00 FL hip RT 1V Routine Hospital Course (1) Status post right hip replacement: On July 01, 2024 Tammi arrived at [facility] underwent a right anterior total hip arthroplasty performed by Dr. Hagan with no complications. She had a spinal anesthetic. Postoperatively, she was started on aspirin for DVT prophylaxis and transferred to the general orthopedic floor in stable condition. Her hospital course was uneventful. On postoperative day #1, her vital signs were stable and her pain is well-controlled. She participated well with physical therapy working on ambulation and range of motion exercises. She was then discharged home in stable condition. She will follow-up with orthopedics in 2 to 3 weeks for continued postoperative management or sooner if needed. PG Care Time/CCT Total # of Minutes Spent Total Time Spent with Patient: Total time spent is greater than 50% in coordination of care (as documented) at patient's floor/unit and/or counseling patient: Discharge Plan Discharge Items Patient Disposition: Home - Home Health Services Reason For Visit: Right Hip Arthritis Discharge Diagnosis: Same Activity: Per Instructions section Non-emergency contact: Surgeon Call non-emergency contact if: your temperature is above 101.5, your wound has increased redness, your wound has increased drainage and your wound pain has increased Follow-up/Referrals: Emiliano Lutz [Primary Care Provider] - Diet: Regular Addtl Attending Provider Instructions: Activity and Therapy Recommendations: * If you are using [facility] then therapy will be provided at your home until they feel you have accomplished all of your goals. * If you are using [facility] then Physical Therapy will be provided until they feel you are ready to start Outpatient Physical Therapy. * If you are not using home therapy then Outpatient Physical Therapy should start about 3-5 days from your day of surgery. Therapy will last about 6-10 weeks * You were shown a series of exercises in the hospital. Do these exercises three times each day including the exercises you were shown in physical therapy. * Get up and walk several times each day.~ For the first four weeks, try not to stand or walk for more than one hour at a time. If you do stand or walk for more than one hour, you will not hurt anything, but your leg will likely swell.~~ * As you feel comfortable, you may change from the walker or crutches to a cane and~then to independent walking. Medications: * Narcotic You will likely be sent home from the hospital with a prescription for the narcotic pain medication that worked best throughout your stay. * Cefadroxil -take the antibiotic twice a day for 10 days to help prevent infection. * Aspirin Most patients will be required to take Aspirin 81mg twice a day for 6 weeks after surgery. This is obtained [id number] and a prescription is not necessary. * Other medications may be prescribed for specific circumstances. If you have any questions, please call the office at . * Resume previous home medications unless otherwise instructed TEDs/Elastic Stockings: The white elastic stockings help limit swelling and prevent blood clots from forming in your legs. The more you wear them, the more they work. Wear them for 2 weeks. Dressing Care: Leave the Silverlon dressing in place for 7 days. After 7 days you may remove the dressing. Do not remove the Norman zip skin closure adhesive plastic strips over top. If the incision is not draining then you may leave the Colby zip skin closure open to air. If there is a little bit of drainage or if the Norman zip skin closure is getting stuck on your clothing then cover the incision with a dry dressing. The sheree will be removed at your 2 week follow-up appointment. Showering: You may shower with the Silverlon dressing in place. Do not let the shower spray hit the dressing directly. Pat the Silverlon dressing dry. If the dressing becomes wet underneath, then simply remove the dressing. Keep the incision dry until you are 7 days out from the day of surgery. After 7 days you may remove the Silverlon dressing and shower with the Colby zip skin closure exposed. Let soapy water run over the Norman zip skin closure and pat it dry. Do not scrub or soak the incision. Diet: You may resume your previous diet. Things To Watch For: * Drainage from the incision site that occurs more than one week after your surgery. * Increased redness at the incision site. * Fever above 102 degrees Fahrenheit. * Unusual chest pain or shortness of breath. * Call [facility] at with any of the above problems Follow-Up Visit: Follow-up with Dr. Hagan's office 2-3 weeks after your day of surgery. We will remove your sheree and answer any questions. If you have any additional questions or concerns, Dr Hagan is usually in the office at the same time and will be available An appointment was probably scheduled when you signed-up for surgery in the office. If you have any questions call Office Instructions: More detailed instructions as well as Frequently Asked Questions were provided in a folder by our office when you signed-up for surgery. Please review these instructions when you get home. If you have any further questions or concerns, please feel free to call the office at [phone] Pending Studies at Discharge: No Stand-Alone Forms: My [facility], Smoking Cessation Medications and DC Order Prescriptions: New aspirin 81 mg Tablet,Delayed Release (Dr/Ec) 81 mg PO BID 42 Days Qty: 0 0RF cefadroxil 500 mg capsule 500 mg PO BID 10 Days Qty: 20 0RF oxycodone 5 mg tablet 5 mg PO Q6H PRN (Reason: pain) Qty: 30 0RF Continued fluticasone propionate 50 mcg/actuation spray,suspension 1 spray INTRANASAL QAM PRN (Reason: congestion) cetirizine 10 mg Tablet 10 mg PO QAM PRN (Reason: allergies) tizanidine 4 mg Tablet 4 mg PO Q8H PRN (Reason: leg cramps) cyanocobalamin (vitamin B-12) [Vitamin B-12] 500 mcg Tablet 250 mcg PO QAM ascorbic acid (vitamin C) [Vitamin C] 250 mg Tablet 250 mg PO QAM cholecalciferol (vitamin D3) [Vitamin D3] 25 mcg (1,000 unit) Tablet,Chewable 25 mcg PO QAM Magnesium Complex 300 mg magnesium Tablet 400 mg PO UD glucosamine [id number]-npa-aycjuhtoio 500-167-400 mg Tablet 1 tab PO BID Rx Instructions: give with meal/snack Multivitamin 50 Plus Tablet 1 tab PO Q2D Held flurbiprofen 100 mg tablet 50 mg PO BID Qty: 60 0RF Hold Instructions: Resume on 08/14/24. Admission Data Admit Date/Time: 07/01/24 08:38 Attending Provider: Abdulaziz Hagan Admit Provider: Abdulaziz Hagan Primary Care Provider: Emiliano Lutz Other Interventions: Discharge Summary Assessment (RN) Last Done: 07/02/24 08:40
== END 2024-07-02 11:30 | disposition home health service (06) ==
LOC: ASU 05:22 → 3W 05:22